=== PATIENT | female | born 1985 | race Two or more races ===

== ENCOUNTER 2022-08-20 19:38 | Inpatient (IN) | payer OTHER ==
[~2022-08-20] VITALS: Ht 157.5 cm; Wt 3.2 kg
[2022-08-20] MEDS ORDERED: PRENATABS RX T1 EACH PO (20:13)
[2022-08-20] MEDS ORDERED: ADULT LOW DOSE81 M1 PO (20:13)
[2022-08-24] MEDS ORDERED: IBUPROFEN800 MG PO (09:47)
== END 2022-08-24 13:02 | disposition home or self-care (01) | DRG 788 ==
LOC: LDR 19:38 → O/R 08-21 21:18 → OB/GYN 08-21 22:31
PROVIDERS: ADMIT Obstetrics & Gynecology; ATTEND Obstetrics & Gynecology
PROC: 3E0P7VZ Introduction of Hormone into Female Reproductive, Via Natural or Artificial Opening (ICD-10-PCS; 2022-08-20)
PROC: 4A1HXCZ Monitoring of Products of Conception, Cardiac Rate, External Approach (ICD-10-PCS; 2022-08-20)
PROC: 3E033VJ Introduction of Other Hormone into Peripheral Vein, Percutaneous Approach (ICD-10-PCS; 2022-08-21)
PROC: 10D00Z1 Extraction of Products of Conception, Low, Open Approach (ICD-10-PCS; principal; 2022-08-21 22:15)
DX: O36.8330 Maternal care for abnormalities of the fetal heart rate or rhythm, third trimester, not applicable or unspecified (principal); Z3A.40 40 weeks gestation of pregnancy; Z37.0 Single live birth; Z20.822 Contact with and (suspected) exposure to COVID-19